=== PATIENT | male | born 1980 | race Hispanic/Latino ===

== ENCOUNTER 2020-11-20 13:24 | Emergency (ER) | payer OTHER ==
[~2020-11-20] VITALS: Ht 170.2 cm; Wt 79.4 kg
[2020-11-20] MEDS ORDERED: METH4TAB3 PO (15:16)
[2020-11-20 15:19] VITALS: BP 151/99
== END 2020-11-20 15:30 | disposition home or self-care (01) ==
LOC: EDH 13:24
DX: S93.402A Sprain of unspecified ligament of left ankle, initial encounter (principal); Z88.0 Allergy status to penicillin; X58.XXXA Exposure to other specified factors, initial encounter; Y93.89 Activity, other specified; Y92.89 Other specified places as the place of occurrence of the external cause; Y99.8 Other external cause status
CPT/HCPCS: 73610